=== PATIENT | female | born 1985 | race African-American/Black ===

== ENCOUNTER 2019-08-15 17:56 | Emergency (ER) | payer MEDICAID ==
[~2019-08-15] VITALS: Ht 172.7 cm; Wt 69.0 kg
[2019-08-15 18:25] VITALS: BP 115/81
[2019-08-15] MEDS ORDERED: PREDNISONE 20MG TABLET PO STA (20:10)
[2019-08-15] MEDS ORDERED: IPRATROPIUM/ALBUTEROL 0.5-3(2.5)MG/3ML NEB HHN ONE (20:15)
[2019-08-15] MEDS ORDERED: AZITHROMYCIN 500 MG TABLET PO ONE (20:15)
== END 2019-08-15 23:18 | disposition home or self-care (01) ==
LOC: ER 17:56
DX: J02.9 Acute pharyngitis, unspecified (principal); J45.909 Unspecified asthma, uncomplicated; R07.89 Other chest pain; R09.82 Postnasal drip
CPT/HCPCS: 94640; 99283; J7512; J7620; Z7610